=== PATIENT | male | born 1990 | race Caucasian/White ===

== ENCOUNTER 2021-08-20 09:19 | Emergency (ER) | payer BC, OTHER ==
[2021-08-20] MEDS ORDERED: Acetaminophen 500 MG TAB ONE (10:10)
[2021-08-20] MEDS ORDERED: Ibuprofen 200 MG TAB ONE (10:10)
== END 2021-08-20 10:18 | disposition home or self-care (01) ==
LOC: CSHERS 09:19
DX: S63.501A Unspecified sprain of right wrist, initial encounter (principal); S80.812A Abrasion, left lower leg, initial encounter; V29.9XXA Motorcycle rider (driver) (passenger) injured in unspecified traffic accident, initial encounter
CPT/HCPCS: 71045